=== PATIENT | male | born 1995 | race Caucasian/White ===

== ENCOUNTER 2016-11-08 04:19 | Emergency (ER) | payer OTHER ==
[~2016-11-08] VITALS: Ht 172.7 cm; Wt 86.2 kg
[2016-11-08 04:26] VITALS: BP 138/85
--- NOTE | 2016-11-08 06:00 | NUR ---
PATIENT AMBULATED TO ER BED 6.
--- NOTE | 2016-11-08 06:08 | NUR ---
PT IS 21/M BIB BROTHER TO ED WITH C/O LT. ARM NAD LEG NUMPNESS X 3 HRS FROM TIME OF TRIAGE. PT STATES NO MEDICAL HX. PT DENIES DIARRHEA; SKIN IS PINK/WARM/DRY; AAOX4 WITH EVEN AND STEADY GAIT; LUNGS CLEAR BL; HR EVEN AND REGULAR; PT DENIES ANY FEVER, CP, SOB, OR COUGH AT THIS TIME; PATIENT STATES PAIN OF 0/10 AT THIS TIME; VSS; PATIENT POSITIONED FOR COMFORT; HOB ELEVATED; BEDRAILS UP X2; BED DOWN. ER MD MADE AWARE OF PT STATUS.
--- NOTE | 2016-11-08 07:05 | NUR ---
DR DE SANTIAGO EVALUATING PT AT BEDSIDE.
--- NOTE | 2016-11-08 07:17 | NUR ---
ENDORSED REPORT TO ALYSSA SHI FOR TRANSFER OF CARE.
[2016-11-08] MEDS ORDERED: NACL 0.9% 1,000 ML IV SCH (07:18)
--- NOTE | 2016-11-08 07:26 | NUR ---
ERMD AT BEDSIDE.WILL START TX.
[2016-11-08 07:34] LABS: BASOPHILS # (AUTO) 0.2 K/uL (0.00-0.22); BASOPHILS % (AUTO) 1.7 % (0.0-2.0); EOSINOPHILS # (AUTO) 0.2 K/uL (0-0.4); HEMATOCRIT 49.3 % (36-52); HEMOGLOBIN 15.9 g/dL (12.0-18.0); LYMPHOCYTES # (AUTO) 1.7 K/uL (2.0-11.5); LYMPHOCYTES % (AUTO) 18.7 % (20.5-51.1); MEAN CORPUSCULAR HEMOGLOBIN 27 pg (27-31); MEAN CORPUSCULAR HGB CONC 32 g/dL (33-37); MEAN CORPUSCULAR VOLUME 85 fL (80-94); MONOCYTES # (AUTO) 0.6 K/uL (0.8-1.0); MONOCYTES % (AUTO) 6.2 % (1.7-9.3); NEUTROPHILS # (AUTO) 6.5 K/uL (1.8-7.7); NEUTROPHILS % (AUTO) 71.4 % (42.2-75.2); PLATELET COUNT (AUTO) 275 K/uL (140-450); RED BLOOD CELL COUNT(AUTO) 5.83 MIL/uL (4.20-6.10); RED CELL DISTRIBUTION WIDTH 12.6 % (11.6-13.7); WHITE BLOOD COUNT (AUTO) 9.2 K/uL (4.8-10.8)
--- NOTE | 2016-11-08 07:36 | NUR ---
PATIENT TAKEN FOR CT HEAD W/O CONTRAST VIA W/C
[2016-11-08 07:50] LABS: APPEARANCE,URINE CLEAR (CLEAR); BILIRUBIN,URINE NEGATIVE (NEGATIVE); BLOOD, URINE NEGATIVE (NEGATIVE); COLOR,URINE YELLOW (YELLOW); LEUKOCYTE ESTERASE ,URINE NEGATIVE (NEGATIVE); NITRITE, URINE NEGATIVE (NEGATIVE); PROTEIN,URINE NEGATIVE (NEGATIVE); UGLUCOSE NEGATIVE (NEGATIVE); UROBILINOGEN,URINE 0.2 EU/dL (0.2 - 1)
--- NOTE | 2016-11-08 07:56 | NUR ---
BACK FROM CT. SCAN
[2016-11-08 07:58] LABS: INR 1.1 (0.8-1.2); PARTIAL THROMBOPLASTIN TIME 25.2 secs (22-35.6); PROTHROMBIN TIME 10.7 secs (10.8-13.4)
--- NOTE | 2016-11-08 08:02 | NUR ---
DENIES NUMBNESSLT. ARM/LEG
[2016-11-08 08:07] LABS: ANION GAP 14.1 (8-16); CALCIUM 8.9 mg/dL (8.5-10.1); CARBON DIOXIDE 28.3 mmol/L (21-32); CREATININE 1.1 mg/dL (0.7-1.3); POTASSIUM 3.4 mmol/L (3.5-5.1)
[2016-11-08 08:13] LABS: ALBUMIN 4.4 g/dL (3.4-5.0); TOTAL BILIRUBIN 0.7 mg/dL (0.0-1.0)
[2016-11-08 08:20] LABS: AMPHETAMINE, URINE NEG ng/ml (NEG <=1000); BARBITURATE, URINE NEG ng/ml (NEG <=200); BENZODIAZEPINE, URINE NEG ng/mL (NEG <=200); CANNABINOID, URINE NEG ng/mL (NEG <=50); COCAINE, URINE NEG ng/mL (NEG <=300); OPIATE, URINE NEG ng/mL (NEG <=2000); PHENCYCLIDINE SCREEN,URINE NEG ng/mL (NEG <=25)
[2016-11-08 08:29] LABS: AMYLASE 76 U/L (25-115); LIPASE 98 U/L (73-393)
[2016-11-08 08:30] LABS: D-DIMER < 100 ng/ml (0-400)
[2016-11-08 10:25] VITALS: BP 144/83
--- NOTE | 2016-11-08 10:25 | NUR ---
Patient discharged with v/s stable. Written and verbal after care instructions given and explained. Patient alert, oriented and verbalized understanding of instructions. Ambulatory with steady gait. All questions addressed prior to discharge. ID band removed. Patient advised to follow up with PMD. Rx of ATIVAN, ALBUTEROL given. Patient educated on indication of medication including possible reaction and side effects. Opportunity to ask questions provided and answered.
== END 2016-11-08 10:25 | disposition home or self-care (01) ==
LOC: MED 04:19
DX: F41.9 Anxiety disorder, unspecified (principal); R06.02 Shortness of breath; I10 Essential (primary) hypertension
CPT/HCPCS: 36415; 70450; 71010; 80053; 80305; 81003; 82150; 82553; 83690; 83880; 84484; 85025; 85379; 85610; 85730; 93005; 96360; 99285; G0482; J7030